=== PATIENT | female | born 1985 | race Caucasian/White ===

== ENCOUNTER 2019-11-07 10:47 | Emergency (ER) | payer OTHER ==
[~2019-11-07] VITALS: Ht 152.4 cm; Wt 61.2 kg
[2019-11-07] MEDS ORDERED: MACROBID 100 M100 MG PO (11:10)
[2019-11-07] MEDS ORDERED: PROTONIX20 MG PO (11:10)
[2019-11-07] MEDS ORDERED: PRENATAL + DHA1 EAC1 PO (11:10)
[2019-11-07] MEDS ORDERED: ZOFRAN4 MG PO (11:10)
[2019-11-08] MEDS ORDERED: PEPCID COMPLET1 EACH PO (08:09)
[2019-11-08] MEDS ORDERED: ONDANSETRON ODT4 MG SL (08:09)
== END 2019-11-07 14:26 | disposition home or self-care (01) ==
LOC: ER 10:47
DX: O23.41 Unspecified infection of urinary tract in pregnancy, first trimester (principal); O26.891 Other specified pregnancy related conditions, first trimester; R21 Rash and other nonspecific skin eruption; R11.0 Nausea; Z34.01 Encounter for supervision of normal first pregnancy, first trimester

== ENCOUNTER 2019-11-08 05:43 | Emergency (ER) | payer OTHER ==
[~2019-11-08] VITALS: Ht 152.4 cm; Wt 61.2 kg
[~2019-11-08 05:43] MED LIST: MACROBID 100 M100 MG PO; PRENATAL + DHA1 EAC1 PO; PROTONIX20 MG PO; ZOFRAN4 MG PO
[2019-11-08] MEDS ORDERED: ONDANSETRON ODT4 MG SL (08:09)
[2019-11-08] MEDS ORDERED: PEPCID COMPLET1 EACH PO (08:09)
== END 2019-11-08 08:37 | disposition home or self-care (01) ==
LOC: ER 05:43
DX: O26.891 Other specified pregnancy related conditions, first trimester (principal); L27.0 Generalized skin eruption due to drugs and medicaments taken internally; T50.995A Adverse effect of other drugs, medicaments and biological substances, initial encounter; Z3A.14 14 weeks gestation of pregnancy

== ENCOUNTER → 2020-02-21 | Outpatient (CLI) | payer OTHER ==
[~2020-02-21] MED LIST changes: +ONDANSETRON ODT4 MG SL; +PEPCID COMPLET1 EACH PO
== END | disposition home or self-care (01) ==
LOC: PRENATAL 13:00
PROVIDERS: ATTEND Obstetrics & Gynecology Maternal & Fetal Medicine
DX: O26.843 Uterine size-date discrepancy, third trimester (principal); O44.03 Complete placenta previa NOS or without hemorrhage, third trimester; Z36.89 Encounter for other specified antenatal screening; Z3A.29 29 weeks gestation of pregnancy

== ENCOUNTER → 2020-04-03 | Outpatient (CLI) | payer OTHER | END | disposition home or self-care (01) | LOC: PRENATAL 08:30 | PROVIDERS: ATTEND Obstetrics & Gynecology Maternal & Fetal Medicine | DX: O26.843 Uterine size-date discrepancy, third trimester (principal); O44.03 Complete placenta previa NOS or without hemorrhage, third trimester; O36.8131 Decreased fetal movements, third trimester, fetus 1; Z36.89 Encounter for other specified antenatal screening; Z3A.34 34 weeks gestation of pregnancy ==

== ENCOUNTER 2020-04-15 22:56 | Outpatient (CLI) | payer OTHER ==
[2020-04-17] MEDS ORDERED: AMPICILLIN SOD500 MG PO (22:37)
[2020-04-17] MEDS ORDERED: IRON325 MG PO (22:37)
== END 2020-04-16 12:35 | disposition home or self-care (01) ==
LOC: OBS/DEL 22:56
PROVIDERS: ATTEND Obstetrics & Gynecology
DX: O23.43 Unspecified infection of urinary tract in pregnancy, third trimester (principal)

== ENCOUNTER 2020-04-17 14:45 | Inpatient (IN) | payer OTHER ==
[~2020-04-17] VITALS: Ht 152.4 cm; Wt 72.6 kg
[2020-04-17] MEDS ORDERED: AMPICILLIN SOD500 MG PO (22:37)
[2020-04-17] MEDS ORDERED: IRON325 MG PO (22:37)
== END 2020-04-20 18:49 | disposition home or self-care (01) | DRG 807 ==
LOC: LDR 22:30 → OB/GYN 22:30 → LDR 05-04 14:45
PROVIDERS: ADMIT Obstetrics & Gynecology; ATTEND Obstetrics & Gynecology
PROC: 10E0XZZ Delivery of Products of Conception, External Approach (ICD-10-PCS; principal; 2020-04-18)
PROC: 3E033VJ Introduction of Other Hormone into Peripheral Vein, Percutaneous Approach (ICD-10-PCS; 2020-04-18)
PROC: 4A1HXFZ Monitoring of Products of Conception, Cardiac Rhythm, External Approach (ICD-10-PCS; 2020-04-18)
DX: O80 Encounter for full-term uncomplicated delivery (principal); Z37.0 Single live birth; Z3A.38 38 weeks gestation of pregnancy

== ENCOUNTER 2020-04-17 21:45 | Outpatient (CLI) | payer OTHER ==
[~2020-04-17] VITALS: Ht 152.4 cm; Wt 72.6 kg
[2020-04-17] MEDS ORDERED: AMPICILLIN SOD500 MG PO (22:37)
[2020-04-17] MEDS ORDERED: IRON325 MG PO (22:37)
== END 2020-04-18 09:53 | disposition still patient (30) ==
LOC: OBS/DEL 21:45
PROVIDERS: ATTEND Obstetrics & Gynecology
DX: O47.1 False labor at or after 37 completed weeks of gestation (principal)